=== PATIENT | male | born 2000 | race Two or more races ===

== ENCOUNTER 2023-05-14 11:23 | Emergency (ER) | payer MEDICAID, OTHER ==
[~2023-05-14] VITALS: Ht 170.2 cm; Wt 63.6 kg
[2023-05-14 11:30] VITALS: TEMP 97.9
[2023-05-14] MEDS ORDERED: BACI28.410 TP (12:27)
[2023-05-14] MEDS ORDERED: AMOX1TAB16 PO (12:27)
[2023-05-14] MEDS ORDERED: DOXY-354 PO (12:27)
[2023-05-14] MEDS: PERTUSS(ACELL),DIPH,TET VAC/PF 0.5 ML SYRINGE IM. ONE (12:35)
[2023-05-14] MEDS: AMOX TR/POT CLAV 875 MG/125 MG TABLET PO ONE (12:36)
[2023-05-14] MEDS: BACITRACIN 0.9 GM PACKET OINTMENT TP ONE (12:36)
[2023-05-14] MEDS: ACETAMINOPHEN 500 MG TABLET PO ONE (12:36)
[2023-05-14] MEDS: DOXYCYCLINE HYCLATE 100 MG TABLET PO ONE (12:36)
[2023-05-14 12:49] VITALS: BP 120/63; PULSE 84; RESP 17
== END 2023-05-14 14:21 | disposition home or self-care (01) ==
LOC: EMS 11:23
DX: S61.411A Laceration without foreign body of right hand, initial encounter (principal); F12.90 Cannabis use, unspecified, uncomplicated; W26.8XXA Contact with other sharp object(s), not elsewhere classified, initial encounter; Y93.89 Activity, other specified; Y92.89 Other specified places as the place of occurrence of the external cause; Y99.8 Other external cause status
CPT/HCPCS: 90471; 90715; 99284